=== PATIENT | female | born 1980 | race Caucasian/White ===

== ENCOUNTER 2017-11-18 04:45 | Emergency (ER) | payer OTHER ==
[2017-11-18 05:04] LABS: URINE HCG POC HCG NEGATIVE (Negative)
[2017-11-18 05:04] LABS: BILIRUBIN,URINE SMALL (NEG); CLARITY,URINE CLOUDY; COLOR,URINE AMBER; GLUCOSE,URINE NEGATIVE (NEG); NITRITE,URINE NEGATIVE (NEG); PH,URINE 5.5; PROTEIN,URINE NEGATIVE (NEG-TRACE)
[2017-11-18 05:10] LABS: ADD MAN DIFF? NO
[2017-11-18 05:12] LABS: BACTERIA,URINE MODERATE /HPF (0-FEW); BASO % 0 % (0-3); EOS # 0.3 x10^3/uL (0.0-0.7); EOS % 3 % (0-3); HEMATOCRIT 43.4 % (36.0-47.0); HEMOGLOBIN 14.7 g/dL (12.0-15.5); LYMPH # 2.2 x10^3/uL (1.0-4.8); LYMPH % 22 % (24-48); MEAN CORPUSCULAR HEMOGLOBIN 27 pg (25-35); MEAN CORPUSCULAR HGB CONC 34 g/dL (31-37); MEAN CORPUSCULAR VOLUME 79 fL (79-100); MONO # 0.6 x10^3/uL (0.0-1.1); MONO % 6 % (0-9); NEUT % 69 % (31-73); PLATELET COUNT 251 x10^3/uL (140-400); RBC,URINE OCC /HPF (0-2); RED BLOOD COUNT 5.49 x10^6/uL (3.50-5.40); RED CELL DISTRIBUTION WIDTH 14.9 % (11.5-14.5); SQUAMOUS EPITHELIAL CELL,UR MOD /LPF; WHITE BLOOD COUNT 10.1 x10^3/uL (4.0-11.0)
[2017-11-18] MEDS: ONDANSETRON PF 4 MG/2 ML VIAL. IV (05:14)
[2017-11-18] MEDS: IV NORMAL SALINE 1000ML BAG 1,000 ML IV (05:18)
[2017-11-18 05:27] LABS: ANION GAP 10 (6-14); BLOOD UREA NITROGEN 14 mg/dL (7-20); BUN/CREATININE RATIO 16 (6-20); CALCIUM 8.9 mg/dL (8.5-10.1); CARBON DIOXIDE 30 mmol/L (21-32); CHLORIDE 99 mmol/L (98-107); CREATININE 0.9 mg/dL (0.6-1.0); GFR 70.1; GLUCOSE 157 mg/dL (70-99); SODIUM 139 mmol/L (136-145)
[2017-11-18 05:31] LABS: ALBUMIN 3.8 g/dL (3.4-5.0); ALBUMIN/GLOBULIN RATIO 0.9 (1.0-1.7); ALK PHOS 113 U/L (46-116); ALT (SGPT) 27 U/L (14-59); AST (SGOT) 17 U/L (15-37); MAGNESIUM 1.8 mg/dL (1.8-2.4); TOTAL BILIRUBIN 0.5 mg/dL (0.2-1.0); TOTAL PROTEIN 8.1 g/dL (6.4-8.2)
[2017-11-18 05:37] LABS: TROPONINI < 0.017 ng/mL (0.000-0.055)
[2017-11-18 05:46] LABS: CKMB INDEX 1.8 % (0-4); CREATINE KINASE 113 U/L (26-192)
== END 2017-11-18 06:17 | disposition home or self-care (01) ==
LOC: ER 04:45
DX: R55 Syncope and collapse (principal); E11.65 Type 2 diabetes mellitus with hyperglycemia; Z79.4 Long term (current) use of insulin
CPT/HCPCS: 36415; 70450; 72125; 80053; 81001; 81025; 82553; 83735; 84484; 85025; 87086; 93005; 96361; 96374; 99285-25; J2405; J7030